=== PATIENT | female | born 1955 | race Two or more races ===

== ENCOUNTER 2019-01-22 05:13 | Inpatient (IN) | payer MEDICAID, MEDICARE ==
[~2019-01-22] VITALS: Ht 157.5 cm; Wt 69.9 kg
[2019-01-22] MEDS ORDERED: AMLO-150 PO (05:35)
[2019-01-22] MEDS ORDERED: LEVO75TA5 PO (05:35)
--- NOTE | 2019-01-22 05:36 | NUR ---
assessment made. PA at bedside. urine sample obtained and sent to lab.
[2019-01-22] MEDS ORDERED: ACETAMINOPHEN 500 MG TABLET ONE (05:39)
[2019-01-22 05:54] LABS: MICROSCOPIC AUTO
[2019-01-22 05:56] LABS: CULTURE INDICATED? YES
[2019-01-22] MEDS ORDERED: SODIUM CHLORIDE 0.9% 1,000ML IVBOLUS ONE ×2 (06:00→07:30)
[2019-01-22] MEDS ORDERED: ACETAMINOPHEN 500 MG TABLET PO ONE (06:00)
[2019-01-22] MEDS ORDERED: SODIUM CHLORIDE FLUSH 10ML SYR IVF ONE (06:00)
--- NOTE | 2019-01-22 06:06 | NUR ---
blood bank laboratory technologist at bedside for blood draw.
--- NOTE | 2019-01-22 06:07 | NUR ---
IVF hung. medicated for fever.
[2019-01-22] MEDS ORDERED: CEFTRIAXONE PMX 1GM/50ML 50 ML ONE (06:18)
--- NOTE | 2019-01-22 06:25 | NUR ---
antibiotic started. patient resting comfortably at this time.
[2019-01-22] MEDS ORDERED: CEFTRIAXONE PMX 1GM/50ML 50 ML IV ONE (06:30)
[2019-01-22 06:41] LABS: ANION GAP 8 mmol/L (5-15); CALCIUM 8.2 mg/dL (8.5-10.1); CHLORIDE 108 mmol/L (98-107); CREATININE 0.95 mg/dL (0.55-1.02)
[2019-01-22 06:42] LABS: ALBUMIN 3.1 g/dL (3.4-5.0)
[2019-01-22 06:47] LABS: ALANINE AMINOTRANSFERASE 90 U/L (12-78); ALKALINE PHOSPHATASE 66 U/L (45-117); BILIRUBIN,TOTAL 1.3 mg/dL (0.2-1.0); TOTAL PROTEIN 6.4 g/dL (6.4-8.2)
--- NOTE | 2019-01-22 06:47 | NUR ---
Report from Sebas FERGUSON.
--- NOTE | 2019-01-22 06:48 | NUR ---
report to PHYLLIS York.
[2019-01-22 06:52] LABS: MEAN CORPUSCULAR HEMOGLOBIN 29.3 pg (27.0-34.8); MEAN CORPUSCULAR HGB CONC 32.7 g/dL (32.4-35.8); MEAN CORPUSCULAR VOLUME 89.7 fL (80-100); MEAN PLATELET VOLUME 9.1 fL (7.4-10.4); PLATELET COUNT 150 x10^3/uL (130-400); RED BLOOD COUNT 3.61 x10^6/uL (3.82-5.3); RED CELL DISTRIBUTION WIDTH 13.7 % (9.6-15.2)
[2019-01-22] MEDS ORDERED: ONDANSETRON 2MG/ML, 2ML IVPush ONE (07:00)
--- NOTE | 2019-01-22 07:01 | NUR ---
Pt resting in bed with eyes closed, resp even and unlabored, NADN.
[2019-01-22 07:08] LABS: BASOPHILS % (AUTO) 0 % (0-1); EOSINOPHILS # (AUTO) 0.01 x10^3/uL (0-0.4); EOSINOPHILS % (AUTO) 0 % (1-7); LYMPHOCYTES # (AUTO) 0.19 x10^3/uL (1-3.4); LYMPHOCYTES % (AUTO) 4 % (22-44); MD SCAN; MONOCYTES # (AUTO) 0.08 x10^3/uL (0.2-0.8); MONOCYTES % (AUTO) 2 % (2-9); NEUTROPHILS # (AUTO) 4.15 x10^3/uL (1.8-6.8); NEUTROPHILS % (AUTO) 94 % (42-75)
--- NOTE | 2019-01-22 07:08 | NUR ---
Discussed pt's VS with Dr. Lora. Orders received for additional NS bolus. IVF initiated per order.
--- NOTE | 2019-01-22 08:37 | NUR ---
Pt ambulatory to bathroom and back to bed without difficulty.
[2019-01-22] MEDS ORDERED: NOREPINEPHRINE 4 MG in SODIUM CHLORIDE 0.9% 246 ML IV PRN (09:00)
--- NOTE | 2019-01-22 09:14 | NUR ---
Assumed c/o pt from PHYLLIS York. Pt is awake, tearful, denies pain or nausea at this time.
--- NOTE | 2019-01-22 09:34 | NUR ---
Plan of care to prepare for peripherally infused vasopressors is MAP trends do not remain >65
--- NOTE | 2019-01-22 10:12 | NUR ---
OOB to use BS commode for void.
--- NOTE | 2019-01-22 10:40 | NUR ---
Report to PHYLLIS Reynoso.
[2019-01-22] MEDS ORDERED: KETOROLAC 30 MG/1 ML IV PRN (11:30)
[2019-01-22] MEDS ORDERED: hydrALAzine 20 MG/ML, 1ML IVPush PRN (11:30)
[2019-01-22] MEDS ORDERED: DOCUSATE 100 MG CAPSULE PO PRN (11:30)
[2019-01-22] MEDS ORDERED: AMLODIPINE 2.5 MG TABLET PO SCH (11:30)
[2019-01-22] MEDS ORDERED: ACETAMINOPHEN 325 MG TABLET ONE (11:34)
[2019-01-22] MEDS ORDERED: ONDANSETRON 2MG/ML, 2ML ONE (11:34)
[2019-01-22] MEDS: ACETAMINOPHEN 325 MG TABLET PO PRN ×2 (11:38→15:41)
[2019-01-22] MEDS: ONDANSETRON 2MG/ML, 2ML IVPush PRN (11:38)
[2019-01-22] MEDS: LACTATED RINGERS 1,000 ML IV SCH ×2 (11:57→20:21)
[2019-01-22] MEDS: LEVOTHYROXINE 50 MCG TABLET PO SCH (12:11)
[2019-01-22] MEDS: ENOXAPARIN 40 MG/0.4 ML SQ SCH (12:11)
[2019-01-22 12:50] VITALS: BP 100/62
[2019-01-22 14:36] LABS: ABSOLUTE RETICS # 0.055 x10^6/uL (0.5-2.5); RED BLOOD COUNT 3.6 x10^6/uL (3.82-5.3); RETICULOCYTE COUNT % 1.53 % (0.5-1.5)
[2019-01-22 19:59] VITALS: BP 97/59
[2019-01-22] MEDS: GUAIFENESIN/COD200MG-20MG/10ML LIQUID PO PRN (20:27)
[2019-01-22] MEDS: DIPHENHYDRAMINE 50 MG CAPSULE PO PRN (22:54)
[2019-01-23 01:30] VITALS: BP 95/58
[2019-01-23] MEDS: ACETAMINOPHEN 325 MG TABLET PO PRN ×3 (01:49→20:49)
[2019-01-23] MEDS: LACTATED RINGERS 1,000 ML IV SCH (04:14)
[2019-01-23 05:47] LABS: BASOPHILS % (AUTO) 0 % (0-1); EOSINOPHILS # (AUTO) 0.02 x10^3/uL (0-0.4); EOSINOPHILS % (AUTO) 0 % (1-7); LYMPHOCYTES # (AUTO) 0.29 x10^3/uL (1-3.4); LYMPHOCYTES % (AUTO) 7 % (22-44); MD NO; MEAN CORPUSCULAR HEMOGLOBIN 30.5 pg (27.0-34.8); MEAN CORPUSCULAR HGB CONC 32.9 g/dL (32.4-35.8); MEAN CORPUSCULAR VOLUME 92.8 fL (80-100); MEAN PLATELET VOLUME 9.6 fL (7.4-10.4); MONOCYTES # (AUTO) 0.19 x10^3/uL (0.2-0.8); MONOCYTES % (AUTO) 5 % (2-9); NEUTROPHILS # (AUTO) 3.47 x10^3/uL (1.8-6.8); NEUTROPHILS % (AUTO) 88 % (42-75); PLATELET COUNT 128 x10^3/uL (130-400); RED BLOOD COUNT 3.41 x10^6/uL (3.82-5.3); RED CELL DISTRIBUTION WIDTH 13.9 % (9.6-15.2)
[2019-01-23 05:49] LABS: ANION GAP 3 mmol/L (5-15); CALCIUM 8.1 mg/dL (8.5-10.1); CHLORIDE 112 mmol/L (98-107); CREATININE 0.84 mg/dL (0.55-1.02)
[2019-01-23] MEDS ORDERED: CEFTRIAXONE PMX 1GM/50ML 50 ML IV SCH (06:30)
[2019-01-23 07:03] VITALS: BP 99/60
[2019-01-23 07:35] LABS: ALBUMIN 2.5 g/dL (3.4-5.0); BILIRUBIN, DIRECT 0.6 mg/dL (0.1-0.2)
[2019-01-23 07:39] LABS: BILIRUBIN,INDIRECT 0.7 mg/dL (0.0-2.0); BILIRUBIN,TOTAL 1.3 mg/dL (0.2-1.0); TOTAL PROTEIN 5.6 g/dL (6.4-8.2)
[2019-01-23] MEDS: LEVOTHYROXINE 50 MCG TABLET PO SCH (08:01)
[2019-01-23] MEDS: SODIUM CHLORIDE 0.9% 1,000 ML IV SCH ×2 (09:00→15:40)
[2019-01-23 12:27] VITALS: BP 103/63
[2019-01-23] MEDS: ENOXAPARIN 40 MG/0.4 ML SQ SCH (12:42)
[2019-01-23] MEDS: CEFTRIAXONE PMX 2GM/50ML 50 ML IV SCH (17:46)
[2019-01-23 19:40] VITALS: BP 121/73
[2019-01-23] MEDS: DIPHENHYDRAMINE 50 MG CAPSULE PO PRN (23:34)
[2019-01-24] MEDS: SODIUM CHLORIDE 0.9% 1,000 ML IV SCH ×2 (00:39→08:17)
[2019-01-24 01:40] VITALS: BP 110/68
[2019-01-24] MEDS: GUAIFENESIN/COD200MG-20MG/10ML LIQUID PO PRN ×2 (01:59→18:11)
[2019-01-24] MEDS: ONDANSETRON 2MG/ML, 2ML IVPush PRN ×2 (02:00→02:03)
[2019-01-24 06:12] LABS: BASOPHILS # (AUTO) 0.02 x10^3/uL (0-0.1); BASOPHILS % (AUTO) 1 % (0-1); EOSINOPHILS # (AUTO) 0.06 x10^3/uL (0-0.4); EOSINOPHILS % (AUTO) 2 % (1-7); LYMPHOCYTES # (AUTO) 0.46 x10^3/uL (1-3.4); LYMPHOCYTES % (AUTO) 14 % (22-44); MD NO; MEAN CORPUSCULAR HEMOGLOBIN 30.4 pg (27.0-34.8); MEAN CORPUSCULAR HGB CONC 33.2 g/dL (32.4-35.8); MEAN CORPUSCULAR VOLUME 91.7 fL (80-100); MONOCYTES # (AUTO) 0.27 x10^3/uL (0.2-0.8); MONOCYTES % (AUTO) 8 % (2-9); NEUTROPHILS # (AUTO) 2.46 x10^3/uL (1.8-6.8); NEUTROPHILS % (AUTO) 75 % (42-75); PLATELET COUNT 138 x10^3/uL (130-400); RED BLOOD COUNT 3.35 x10^6/uL (3.82-5.3); RED CELL DISTRIBUTION WIDTH 14.3 % (9.6-15.2)
[2019-01-24 06:27] LABS: CALCIUM 7.7 mg/dL (8.5-10.1); CHLORIDE 114 mmol/L (98-107)
[2019-01-24 06:34] LABS: ALANINE AMINOTRANSFERASE 49 U/L (12-78); ALBUMIN 2.2 g/dL (3.4-5.0); ALKALINE PHOSPHATASE 66 U/L (45-117); BILIRUBIN,TOTAL 0.3 mg/dL (0.2-1.0); CREATININE 0.65 mg/dL (0.55-1.02); TOTAL PROTEIN 5.4 g/dL (6.4-8.2)
[2019-01-24 06:35] LABS: ANION GAP 5 mmol/L (5-15)
[2019-01-24 07:17] VITALS: BP 108/63
[2019-01-24] MEDS: LEVOTHYROXINE 50 MCG TABLET PO SCH (08:17)
[2019-01-24] MEDS: ENOXAPARIN 40 MG/0.4 ML SQ SCH (11:12)
[2019-01-24] MEDS: POTASSIUM CHLORIDE 20 MEQ TAB.ER.PRT PO SCH ×2 (11:12→17:34)
[2019-01-24] MEDS: ACETAMINOPHEN 325 MG TABLET PO PRN ×2 (11:23→23:32)
[2019-01-24 12:48] VITALS: BP 136/70
[2019-01-24] MEDS: CEFTRIAXONE PMX 2GM/50ML 50 ML IV SCH (17:34)
[2019-01-24 19:27] VITALS: BP 129/65
[2019-01-25 04:29] VITALS: BP 131/68
[2019-01-25] MEDS ORDERED: LEVOTHYROXINE 50 MCG TABLET PO SCH (06:00)
[2019-01-25 07:41] VITALS: BP 133/78
[2019-01-25] MEDS ORDERED: LEVO750T26 PO (09:25)
[2019-01-25] MEDS: CEFTRIAXONE PMX 2GM/50ML 50 ML IV SCH (11:09)
[2019-01-25] MEDS: ENOXAPARIN 40 MG/0.4 ML SQ SCH (11:09)
== END 2019-01-25 13:18 | disposition home or self-care (01) | DRG 871 ==
LOC: ED 06:36 → EDIP 08:10 → 4EST 10:38
PROVIDERS: ADMIT Hospitalist; ATTEND Hospitalist
DX: A41.51 Sepsis due to Escherichia coli [E. coli] (principal); R65.21 Severe sepsis with septic shock; N10 Acute pyelonephritis; Z88.0 Allergy status to penicillin; D64.9 Anemia, unspecified; D69.6 Thrombocytopenia, unspecified; E03.9 Hypothyroidism, unspecified; I10 Essential (primary) hypertension; M06.9 Rheumatoid arthritis, unspecified; Z83.2 Family history of diseases of the blood and blood-forming organs and certain disorders involving the immune mechanism; Z87.440 Personal history of urinary (tract) infections
CPT/HCPCS: 36415; 80048; 80053; 80076; 81001; 82728; 83540; 83550; 83605; 83735; 84145; 84443; 85025; 85045; 87040; 87077; 87086; 87186; 96365; G0378; J0696; J1650; J2405; J7030; J7120